=== PATIENT | male | born 1990 ===

== ENCOUNTER 2019-07-24 18:05 | Emergency (ER) | payer OTHER ==
--- NOTE | 2019-07-24 18:51 | UC ---
Dental HPI - HPI Summary HPI Summary: bp recheck 138/80-----severe pain left upper teeth (#12) no swelling patient reports last dental exam 6 months ago with out cavities- - History of Current Complaint Chief Complaint: UCDentalProblem Stated Complaint: DENTAL COMPLAINT Time Seen by Provider: 07/24/19 18:43 Hx Obtained From: Patient Onset/Duration: Sudden Onset Pain Intensity: 8 Pain Scale Used: 0-10 Numeric Aggravating Factor(s): Heat, Cold, Chewing Alleviating Factor(s): Nothing - Allergies/Home Medications Allergies/Adverse Reactions: Allergies Allergy/AdvReac Type Severity Reaction Status Date / Time No Known Allergies Allergy Verified 07/24/19 18:17 PMH/Surg Hx/FS Hx/Imm Hx Previously Healthy: Yes - Surgical History Surgical History: None - Family History Known Family History: Positive: None - Social History Occupation: Employed Full-time Lives: With Family Alcohol Use: None Substance Use Type: None Smoking Status (MU): Never Smoked Tobacco Review of Systems All Other Systems Reviewed And Are Negative: Yes Constitutional: Positive: Negative Skin: Positive: Negative Eyes: Positive: Negative ENT: Positive: Dental Pain - left upper side of mouth Respiratory: Positive: Negative Cardiovascular: Positive: Negative Gastrointestinal: Positive: Negative Genitourinary: Positive: Negative Motor: Positive: Negative Neurovascular: Positive: Negative Musculoskeletal: Positive: Negative Neurological: Positive: Negative Psychological: Positive: Negative Is Patient Immunocompromised?: No Physical Exam Triage Information Reviewed: Yes Appearance: Well-Appearing, No Pain Distress, Well-Nourished Vital Signs: Initial Vital Signs Temp 98.3 F 07/24/19 18:12 Pulse 65 07/24/19 18:12 Resp 16 07/24/19 18:12 BP 148/103 07/24/19 18:12 Pulse Ox 100 07/24/19 18:12 Vital Signs Reviewed: Yes Eye Exam: Normal Eyes: Positive: Conjunctiva Clear ENT Exam: Normal ENT: Positive: Normal ENT inspection, Hearing grossly normal, Pharynx normal, TMs normal, Dental tenderness - #12, Uvula midline. Negative: Nasal congestion , Tonsillar swelling, Tonsillar exudate, Trismus, Muffled voice, Hoarse voice, Sinus tenderness Dental Exam: Normal Dental: Positive: Percussion Tenderness @ - #12. Negative: Gross Decay/Caries @ , Dental Fracture @ Neck exam: Normal Neck: Positive: Supple, Nontender, No Lymphadenopathy Respiratory Exam: Normal Respiratory: Positive: Chest non-tender, No respiratory distress, No accessory muscle use Cardiovascular Exam: Normal Cardiovascular: Positive: RRR, Pulses Normal, Brisk Capillary Refill Musculoskeletal Exam: Normal Musculoskeletal: Positive: Strength Intact, ROM Intact, No Edema Neurological Exam: Normal Neurological: Positive: Alert, Muscle Tone Normal Psychological Exam: Normal Skin Exam: Normal Dental Complaint Course/Dx - Course Course Of Treatment: patient has plan to follow with dentist on Saturday---will rx pain med and antibiotics---referral also provided for pcp BP on recheck is ok - Differential Dx/Diagnosis Provider Diagnosis: Pain, dental Discharge ED - Sign-Out/Discharge Documenting (check all that apply): Patient Departure All imaging exams completed and their final reports reviewed: No Studies - Discharge Plan Condition: Stable Disposition: HOME Prescriptions: Amoxicillin PO (*) [Amoxicillin 500 MG CAP*] 500 mg PO TID #30 cap Hydrocodone/Acetaminophen [Hydrocodone-Acetamin 5-325 mg] 1 each PO Q6HR PRN #8 tablet MDD 4 PRN Reason: Pain - Severe Ibuprofen TAB* [Motrin TAB* 600 MG] 600 mg PO Q6H PRN #30 tab PRN Reason: Pain - Moderate Patient Education Materials: Toothache (ED) Referrals: [facility] [Outside] - If Needed [facility] [Outside] - If Needed - Billing Disposition and Condition Condition: STABLE Disposition: Home
== END 2019-07-24 19:15 | disposition home or self-care (01) ==
LOC: UCEAST 18:05
DX: K08.89 Other specified disorders of teeth and supporting structures (principal)
CPT/HCPCS: 99202; G0463